=== PATIENT | female | born 1990 | race Caucasian/White ===

== ENCOUNTER 2021-01-14 22:04 | Emergency (ER) | payer OTHER ==
[~2021-01-14] VITALS: Ht 152.4 cm; Wt 73.0 kg
[2021-01-14 22:17] VITALS: Ht 152.4 cm; Wt 73.0 kg
[2021-01-15 00:12] LABS: BASOPHIL % 0.7 % (0.2-1.3); RED CELL DISTRIBUTION WIDTH 13.5 % (12.3-17.7)
[2021-01-15 00:18] LABS: CALCIUM 8.6 mg/dL (8.5-10.1); CARBON DIOXIDE 26.1 mmol/L (21-32); CHLORIDE SERUM 102 mmol/L (98-107); CREATININE SERUM 0.7 mg/dL (0.6-1.0); GFR1 > 60 mL/min; GLUCOSE SERUM 83 mg/dL (74-106); POTASSIUM SERUM 3.6 mmol/L (3.5-5.1); SODIUM SERUM 135 mmol/L (136-145)
[2021-01-15 00:20] LABS: ALKALINE PHOSPHATASE 83 U/L (46-116); ALT/SGPT 17 U/L (14-59); AST/SGOT 16 U/L (15-37); BILIRUBIN TOTAL 0.2 mg/dL (0.20-1.00); LIPASE 118 IU/L (73-393); TOTAL PROTEIN, SERUM 6.8 g/dL (6.4-8.2)
[2021-01-15 00:21] LABS: ALBUMIN 3.3 g/dL (3.4-5.0)
[2021-01-15 00:32] LABS: PLATELET COUNT 415 x10^3mcL (179-408)
[2021-01-15 01:36] VITALS: BP 133/72
[2021-01-15] MEDS ORDERED: ACETAMINOPHEN-H1 TA1 PO ×2 (01:37→01:41)
== END 2021-01-15 02:20 | disposition home or self-care (01) ==
LOC: ED 22:04
PROVIDERS: Emergency Medicine
DX: R10.11 Right upper quadrant pain (principal); G89.18 Other acute postprocedural pain; D47.3 Essential (hemorrhagic) thrombocythemia; E87.1 Hypo-osmolality and hyponatremia; Z90.49 Acquired absence of other specified parts of digestive tract; Z98.84 Bariatric surgery status; Z98.890 Other specified postprocedural states
CPT/HCPCS: J2270; J2405; J7030; Q9967